=== PATIENT | male | born 1995 | race Caucasian/White ===

== ENCOUNTER → 2021-04-29 11:23 | Outpatient (BNVA) | payer OTHER, SELFPAY | PROVIDERS: Visit Provider Emergency Medicine | DX: Z20.822 Contact with and (suspected) exposure to COVID-19 (principal) | CPT/HCPCS: 87635 ==

== ENCOUNTER 2021-09-07 20:00 | Outpatient (CLI) | payer MEDICAID, SELFPAY | END 2021-09-07 20:01 | disposition home or self-care (01) | LOC: SLEEP 09-08 08:59 | PROVIDERS: Visit Provider Nurse Practitioner Family | DX: G47.30 Sleep apnea, unspecified (principal) | CPT/HCPCS: 95811 ==

== ENCOUNTER → 2022-07-26 10:11 | Outpatient (BNVA) | payer MEDICAID, SELFPAY | PROVIDERS: PCP Nurse Practitioner Family; Visit Provider Internal Medicine | DX: E11.9 Type 2 diabetes mellitus without complications (principal); R79.89 Other specified abnormal findings of blood chemistry; E23.7 Disorder of pituitary gland, unspecified | CPT/HCPCS: 80061; 82043; 83001; 83002; 83721; 84403 ==

== ENCOUNTER → 2022-10-24 09:23 | Outpatient (BNVA) | payer MEDICAID, SELFPAY | PROVIDERS: PCP Nurse Practitioner Family; Visit Provider Internal Medicine | DX: N20.0 Calculus of kidney (principal); R79.89 Other specified abnormal findings of blood chemistry; E23.7 Disorder of pituitary gland, unspecified | CPT/HCPCS: 80061; 82310; 82533; 83036; 83970; 84305; 84403; 84439; 84443 ==

== ENCOUNTER → 2022-11-21 13:40 | Outpatient (BNVA) | payer MEDICAID, SELFPAY | PROVIDERS: PCP Nurse Practitioner Family; Visit Provider Internal Medicine | DX: R79.89 Other specified abnormal findings of blood chemistry (principal) | CPT/HCPCS: 85025; G0103 ==